=== PATIENT | male | born 1985 | race Caucasian/White ===

== ENCOUNTER 2016-12-22 16:28 | Emergency (ER) | payer MEDICAID ==
[~2016-12-22] VITALS: Ht 185.4 cm; Wt 85.0 kg
[2016-12-22 17:07] LABS: ASPARTATE AMINO TRANSFERASE 21 U/L (15-37); BLOOD UREA NITROGEN 12 mg/dL (7-18)
[2016-12-22 18:29] VITALS: BP 122/75
== END 2016-12-22 19:27 | disposition home or self-care (01) ==
LOC: ED 19:00
DX: R10.11 Right upper quadrant pain (principal); R11.0 Nausea
CPT/HCPCS: 36415; 76700; 80053; 81003; 83690; 85025; 99285

== ENCOUNTER 2018-02-13 20:53 | Emergency (ER) | payer MEDICAID ==
[~2018-02-13] VITALS: Ht 185.4 cm; Wt 80.6 kg
[2018-02-13 21:33] LABS: CULTURE INDICATED? NO; MICROSCOPIC INDICATED
[2018-02-13 21:38] LABS: BASOPHILS # (AUTO) 0.05 x10^3/uL (0-0.1); BASOPHILS % (AUTO) 1 % (0-1); EOSINOPHILS # (AUTO) 0.12 x10^3/uL (0-0.4); EOSINOPHILS % (AUTO) 2 % (1-7); LYMPHOCYTES # (AUTO) 3.31 x10^3/uL (1-3.4); LYMPHOCYTES % (AUTO) 39 % (22-44); MD NO; MEAN CORPUSCULAR HEMOGLOBIN 31.6 pg (27.5-34.5); MEAN CORPUSCULAR HGB CONC 33.8 g/dL (33.2-36.2); MEAN CORPUSCULAR VOLUME 93.7 fL (81-97); MEAN PLATELET VOLUME 7.5 fL (7.4-10.4); MONOCYTES # (AUTO) 0.88 x10^3/uL (0.2-0.8); MONOCYTES % (AUTO) 10 % (2-9); NEUTROPHILS # (AUTO) 4.12 x10^3/uL (1.8-6.8); NEUTROPHILS % (AUTO) 49 % (42-75); PLATELET COUNT 252 x10^3/uL (130-400)
[2018-02-13 21:50] LABS: ALANINE AMINOTRANSFERASE 31 U/L (12-78); ALBUMIN 3.7 g/dL (3.4-5.0); ANION GAP 5 mmol/L (5-15); CALCIUM 8.6 mg/dL (8.5-10.1); CHLORIDE 111 mmol/L (98-107)
[2018-02-13 21:52] LABS: ALKALINE PHOSPHATASE 120 U/L (45-117); BILIRUBIN,TOTAL 0.2 mg/dL (0.2-1.0); TOTAL PROTEIN 6.5 g/dL (6.4-8.2)
[2018-02-13 22:23] VITALS: BP 115/61
== END 2018-02-13 22:49 | disposition home or self-care (01) ==
LOC: ED 21:40
DX: R10.31 Right lower quadrant pain (principal); K21.9 Gastro-esophageal reflux disease without esophagitis; F17.200 Nicotine dependence, unspecified, uncomplicated; R10.11 Right upper quadrant pain
CPT/HCPCS: 36415; 76700; 80053; 81001; 83690; 85025; 99285

== ENCOUNTER → 2018-04-14 | Outpatient (CLI) | payer MEDICAID ==
[~2018-04-14] MED LIST: NONE PER PT
== END | disposition home or self-care (01) ==
LOC: STAR 13:02
PROVIDERS: ATTEND Surgery
DX: Z02.9 Encounter for administrative examinations, unspecified (principal)

== ENCOUNTER 2018-04-18 11:03 | Day surgery (SDC) | payer MEDICAID ==
[~2018-04-18] VITALS: Ht 185.4 cm; Wt 77.9 kg
[2018-04-18] MEDS ORDERED: LACTATED RINGERS 1,000 ML IV SCH (11:34)
[2018-04-18 11:45] VITALS: BP 123/74
[2018-04-18] MEDS ORDERED: BUPIVACAINE/PF-EPI 0.5% 1:200K ONE (12:31)
[2018-04-18] MEDS ORDERED: FENTANYL PF 250 MCG/5ML ONE (12:35)
[2018-04-18] MEDS ORDERED: MIDAZOLAM 1 MG/ML, 2ML ONE (12:35)
[2018-04-18] MEDS ORDERED: CEFOTETAN 2 GM ONE (13:25)
[2018-04-18] MEDS ORDERED: PROPOFOL 10 MG/ML, 20ML ONE (13:25)
[2018-04-18] MEDS ORDERED: ROCURONIUM 10 MG/ML,10ML ONE (13:25)
[2018-04-18] MEDS ORDERED: DEXAMETHASONE 4 MG/ML, 1ML ONE (13:25)
[2018-04-18] MEDS ORDERED: ONDANSETRON 2MG/ML, 2ML ONE ×3 (13:25→14:46)
[2018-04-18] MEDS ORDERED: LORazepam 2 MG/ML, 1ML IVPush PRN (14:00)
[2018-04-18] MEDS ORDERED: PROMETHAZINE 25 MG/ML, 1ML IV PRN (14:00)
[2018-04-18] MEDS ORDERED: OXYcodone 5 MG/5 ML ORAL.SOL UDC PO PRN (14:00)
[2018-04-18] MEDS ORDERED: ACETAMINOPHEN 325 MG TABLET PO PRN (14:00)
[2018-04-18] MEDS ORDERED: HALOPERIDOL 5 MG/ML IV PRN (14:00)
[2018-04-18] MEDS ORDERED: HYDROmorphone 1 MG/ML, 1ML IV PRN (14:00)
[2018-04-18] MEDS ORDERED: FENTANYL PF 100 MCG/2ML ONE ×2 (14:25→15:06)
[2018-04-18] MEDS: FENTANYL PF 100 MCG/2ML IV PRN ×2 (15:07→15:13)
[2018-04-18] MEDS ORDERED: OXYcodone 5 MG/5 ML ORAL.SOL UDC ONE (15:09)
[2018-04-18] MEDS ORDERED: MEPERIDINE/PF 50 MG/ML ONE (15:27)
[2018-04-18] MEDS: MEPERIDINE/PF 25MG/0.5ML IVPush PRN ×2 (15:29→15:35)
[2018-04-18] MEDS ORDERED: PROMETHAZINE 25 MG/ML, 1ML ONE (15:31)
== END 2018-04-18 17:35 | disposition home or self-care (01) ==
LOC: OUT 11:03
PROVIDERS: ATTEND Surgery
DX: K40.90 Unilateral inguinal hernia, without obstruction or gangrene, not specified as recurrent (principal); Z88.5 Allergy status to narcotic agent
CPT/HCPCS: 49650; C1781; J1100; J2175; J2250; J2405; J2550; J2704; J3010; S0074; S2900

== ENCOUNTER 2020-04-19 22:08 | Emergency (ER) | payer BC ==
[~2020-04-19] VITALS: Ht 185.4 cm; Wt 84.0 kg
[2020-04-19 22:12] VITALS: BP 127/84
[2020-04-19] MEDS ORDERED: LIDOCAINE-MPF 1%, 5ML ONE (22:42)
[2020-04-19] MEDS ORDERED: DIPH,PERTUSS(ACELL),TET VAC/PF 0.5 ML IM-VACC ONE ×2 (22:56→23:00)
[2020-04-19] MEDS ORDERED: BUPIVACAINE 0.25% ONE (22:58)
--- NOTE | 2020-04-20 00:45 | NUR ---
DC EDUCATION PROVIDED, PT DEMONSTRATES UNDERSTANDING. PT AMBULATED STEADILY TO DC WITH RN
== END 2020-04-20 00:46 | disposition home or self-care (01) ==
LOC: ED 04-20 00:30
DX: S61.213A Laceration without foreign body of left middle finger without damage to nail, initial encounter (principal); S61.215A Laceration without foreign body of left ring finger without damage to nail, initial encounter; S61.217A Laceration without foreign body of left little finger without damage to nail, initial encounter; S56.122A Laceration of flexor muscle, fascia and tendon of left index finger at forearm level, initial encounter; S56.126A Laceration of flexor muscle, fascia and tendon of left ring finger at forearm level, initial encounter; X58.XXXA Exposure to other specified factors, initial encounter; Y93.89 Activity, other specified; Y92.89 Other specified places as the place of occurrence of the external cause; Y99.8 Other external cause status
CPT/HCPCS: 12002; 90471; 90715; 99283